=== PATIENT | male | born 2000 | race Caucasian/White ===

== ENCOUNTER 2018-09-04 08:56 | Emergency (ER) | payer OTHER ==
[~2018-09-04] VITALS: Ht 170.2 cm; Wt 68.2 kg
[2018-09-04] MEDS ORDERED: NS 1,000 ML IV ONE (09:30)
[2018-09-04] MEDS ORDERED: ONDANSETRON 4MG/2ML VIAL (J2405) IV ONE (09:30)
[2018-09-04] MEDS ORDERED: KETOROLAC 30 MG/ML VIAL (J1885) IV ONE (09:30)
[2018-09-04 09:37] LABS: APPEARANCE, URINE CLEAR (CLEAR); BACTERIA, URINE AUTO NEGATIVE (NEGATIVE); BILIRUBIN, URINE AUTO NEGATIVE (NEGATIVE); BLOOD, URINE BLOOD NEGATIVE (NEGATIVE); COLOR, URINE YELLOW (YELLOW); GLUCOSE, URINE (UA) AUTO NEGATIVE (NEGATIVE); KETONE, URINE AUTO NEGATIVE (NEGATIVE); LEUKOCYTE ESTERASE, URINE AUTO NEGATIVE (NEGATIVE); NITRITE, URINE AUTO NEGATIVE (NEGATIVE); PROTEIN, URINE AUTO NEGATIVE (NEGATIVE); RBC, URINE AUTO 1 /HPF (0-3); SPECIFIC GRAVITY URINE AUTO 1.023 (1.002-1.035); SQUAMOUS EPITHELIAL CELL UR AU 0 /HPF (0-6); UROBILINOGEN, URINE AUTO 0.2 mg/dL (0.0-2.0); WBC, URINE AUTO 0 /HPF (0-3)
[2018-09-04 09:39] LABS: BASO % 0.6 % (0.0-1.0); EOS # 0.1 10^3/uL (0.0-0.50); EOS % 2.5 % (0.0-3.0); HEMATOCRIT 47.8 % (42.0-52.0); HEMOGLOBIN 16.5 g/dl (13.5-17.5); LYMPH # 1.2 10^3/uL (1.5-6.5); LYMPH % 22.8 % (24.0-44.0); MEAN CORPUSCULAR HEMOGLOBIN 31.2 pg (27.0-33.0); MEAN CORPUSCULAR HGB CONC 34.5 g/dl (32.0-36.5); MEAN CORPUSCULAR VOLUME 90.4 fl (80.0-96.0); MONO # 0.6 10^3/uL (0.0-0.8); NEUTROPHILS # 3.3 10^3/uL (1.8-7.7); NEUTROPHILS % 62.7 % (36.0-66.0); PLATELET COUNT, AUTOMATED 229 10^3/uL (150-450); RED BLOOD COUNT 5.29 10^6/uL (4.30-6.10); WHITE BLOOD COUNT 5.3 10^3/uL (4.0-10.0)
[2018-09-04 10:12] LABS: ALBUMIN 4.6 GM/DL (3.2-5.2); ALT/SGPT 42 U/L (12-78); BILIRUBIN,TOTAL 0.8 MG/DL (0.2-1.0); BLOOD UREA NITROGEN 15 MG/DL (7-18); C REACTIVE PROTEIN QUANTITATIV 0.84 MG/DL (0.00-0.30); CALCIUM LEVEL 9.5 MG/DL (8.5-10.1); CARBON DIOXIDE LEVEL 29 MEQ/L (21-32); CHLORIDE LEVEL 103 MEQ/L (98-107); CREATININE FOR GFR 1.05 MG/DL (0.70-1.30); GLUCOSE, FASTING 100 MG/DL (70-100); LIPASE 68 U/L (73-393); POTASSIUM SERUM 3.7 MEQ/L (3.5-5.1); SODIUM LEVEL 137 MEQ/L (136-145); TOTAL PROTEIN 7.7 GM/DL (6.4-8.2)
[2018-09-04] MEDS ORDERED: ISOVUE-370 76% 100ML VIAL (Q9967) As Ordered ONE (10:49)
--- NOTE | 2018-09-04 10:50 | REP ---
Right upper quadrant sonography: History: Epigastric and right upper quadrant pain. The patient states that this symptoms worse after eating. Comparison study: No comparison study Findings: Scanning through the right upper quadrant of the abdomen demonstrates a normal sized, thin-walled gallbladder without evidence of stone or polyp. Common bile duct is normal measuring 0.5 cm in greatest diameter. No focal liver lesion is seen. Liver size is normal. No pancreatic abnormality is observed. No right renal abnormality is seen. There is no evidence of ascites. The right kidney measures 10.3 x 4.7 x 3.7 cm. Impression: Negative right upper quadrant sonography. Electronically Signed by Ruslan Knox MD 09/04/2018 10:42 A
[2018-09-04] MEDS ORDERED: OMEP20CA3 PO (11:13)
--- NOTE | 2018-09-04 11:15 | REP ---
CT abdomen and pelvis with IV but without oral contrast: History: Upper abdomen pain. Negative right upper quadrant sonography. CT contrast dose: 100 ml of intravenous Isovue [address] findings: Preliminary digital lone lead lineman radiograph demonstrates a normal bowel gas pattern. The lung bases are clear. There is mild diffuse fatty infiltration of the liver. No focal liver lesion is seen. Liver size is normal. No adrenal lesion is seen. No pancreatic abnormality is observed. The gallbladder is unremarkable by CT criteria. The kidneys enhance symmetrically and are morphologically intact. No hydronephrosis is seen. No renal calculus is seen. Urinary bladder seminal vesicles and prostate are unremarkable. A normal appendix is seen in the right lower abdomen over the iliac artery. No abdominal wall defect is observed. Small and large bowel loops are unremarkable. Impression: Normal CT study abdomen and pelvis with IV contrast. Electronically Signed by Ruslan Knox MD 09/04/2018 11:08 A
[2018-09-04 11:23] VITALS: BP 116/57
== END 2018-09-04 11:25 | disposition home or self-care (01) ==
LOC: M ED 08:56
DX: R10.13 Epigastric pain (principal); F17.210 Nicotine dependence, cigarettes, uncomplicated
CPT/HCPCS: 74177; 76705; 80053; 81001; 83690; 85025; 86140; 96361; 96374; 96375; 99284; J1885; J2405; Q9967

== ENCOUNTER 2020-05-03 07:00 | Day surgery (SDC) | payer OTHER ==
[~2020-05-03] VITALS: Ht 170.2 cm; Wt 78.0 kg
[~2020-05-03 07:00] MED LIST: IBUP200C25 PO; LR 1,000 ML IV ONE; OMEP1CAP73 PO; ceFAZolin SOD 2 GM in IV 1 EA IV ONE
[2020-05-03] MEDS ORDERED: ROPIvacaine 0.5% 30ML INJECTION (J2795 PER 1MG) ONE (07:01)
[2020-05-03] MEDS ORDERED: LIDOCAINE 1% MDV 20ML VIAL ONE (07:01)
[2020-05-03] MEDS ORDERED: EPINEPHrine INJ 1 MG/ML 1ML AMP ONE (07:01)
[2020-05-03] MEDS ORDERED: ROCURONIUM BROMIDE 50 MG/5 ML VIAL ONE (08:00)
[2020-05-03] MEDS ORDERED: LIDOCAINE 2% 100MG/5ML SDV (FOR ANES.) ONE (08:00)
[2020-05-03] MEDS ORDERED: propofoL 200 MG/20 ML VIAL ONE (08:00)
[2020-05-03] MEDS ORDERED: MIDAZOLAM INJ 2MG/2ML VIAL (J2250 PER 1MG) ONE (08:01)
[2020-05-03] MEDS ORDERED: fentaNYL 250 MCG/5 ML INJECTION (J3010) ONE (08:01)
[2020-05-03] MEDS: MIDAZOLAM INJ 2MG/2ML VIAL (J2250 PER 1MG) IV PRN ×2 (08:12→08:15)
[2020-05-03] MEDS ORDERED: fentaNYL 100 MCG/2 ML INJECTION (J3010) IV PRN ×2 (09:00→10:30)
[2020-05-03] MEDS ORDERED: SUGAMMADEX SODIUM 500 MG/5 ML VIAL (BRIDION) ONE (09:07)
[2020-05-03] MEDS ORDERED: KETOROLAC 60MG 2ML VIAL ONE (09:08)
[2020-05-03] MEDS ORDERED: dexameTHASONE 4 MG/ML 1ML VIAL (J1100 PER 1MG) ONE (09:08)
[2020-05-03] MEDS ORDERED: ONDANSETRON 4MG/2ML VIAL ONE (09:08)
[2020-05-03] MEDS: PERCOCET 5MG/325MG TAB PO PRN ×2 (10:25→10:53)
[2020-05-03] MEDS ORDERED: ONDANSETRON 4MG/2ML VIAL IV PRN (10:30)
[2020-05-03] MEDS ORDERED: LR 1,000 ML IV SCH ×2 (10:30→11:30)
[2020-05-03] MEDS ORDERED: METOCLOPRAMIDE INJ 10MG/2ML VIAL (J2765 PER 1) IV PRN (10:30)
[2020-05-03 11:45] VITALS: BP 127/67
--- NOTE | 2020-05-14 13:11 | RO ---
DATE OF SERVICE: 05/03/2020 PREOPERATIVE DIAGNOSIS: Right ankle instability. POSTOPERATIVE DIAGNOSIS: Right ankle instability. PROCEDURES: Right Brostrum-House procedure. SURGEON: Almita Abbott MD DIRECTOR OF DEVELOPMENT AND MARKETING: MEY Esparza ANESTHESIA: General endotracheal anesthesia with popliteal nerve block. ESTIMATED BLOOD LOSS: 10 mL. COMPLICATIONS: None. CONDITION: Stable to the recovery room. INDICATIONS: Kavon Marcano is a 19-year-old male who has had long-standing pain and instability to his right ankle. The pain is in the region of the lateral ligaments. He has failed conservative measures. Risks and benefits of surgery were discussed with him in detail and informed consent was obtained. The plan was to hold off on ankle arthroscopy, as he had no pain in his tibiotalar joints and cartilage looked perfect on MRI. PROCEDURE: The patient was met in the pre-operative holding area where the right lower extremity was marked as the correct operative site. He was then taken to the operating room where his right lower extremity was prepped and draped in the normal sterile fashion. An official time-out was held where the correct patient, operative site, and operative procedure were verified. A well-padded tourniquet had been placed on the right upper thigh and antibiotics were given within 60 minutes prior to the incision. The right lower extremity was exsanguinated and tourniquet was inflated to 275 mmHg. An incision was made over the anterior aspect of the fibula. Care was taken with careful hemostasis and to avoid any branches of the superficial peroneal nerve. Using a fresh 15-blade, a cuff of tissue was taken off of the distal aspect of the fibula, which included the capsule and ATFL and CFL remnants. The lateral aspect of the talus was examined and was found to be free of any cartilage lesions. Copious irrigation was performed. The distal fibula was roughened using the curette and all soft tissue was removed. A 3-0 Arthrex Suture Reynaldo was placed in the region of the CFL. A second Suture Reynaldo was placed in the region of the ATFL. With the foot in slight eversion and posterior translation, the sutures were passed through the cuff of tissue and tied down. There was a nice bumper of tissue following the repair. It was further reinforced with a 2-0 FiberWire and 0-Vicryl. Extensor retinaculum was incorporated in the repair in the House modification. Copious irrigation was performed. The skin was closed with 3-0 Vicryl and 3-0 nylon. The patient was placed into a well-padded splint. He was extubated and transferred to the recovery room in stable condition. MEY Esparza was present for the entire procedure and was essential for soft tissue retraction, hardware placement, closure and overall reduction in tourniquet time. ALEXEY
== END 2020-05-03 11:55 | disposition home or self-care (01) ==
LOC: M SDC 07:00
PROVIDERS: ATTEND Orthopaedic Surgery
DX: M25.371 Other instability, right ankle (principal); K21.9 Gastro-esophageal reflux disease without esophagitis; Z79.899 Other long term (current) drug therapy; F17.218 Nicotine dependence, cigarettes, with other nicotine-induced disorders; R06.83 Snoring
CPT/HCPCS: 27698; 64445; C1713; J0171; J0690; J1100; J1885; J2250; J2405; J2795; J3010